=== PATIENT | female | born 1975 | race Two or more races ===

== ENCOUNTER 2025-01-25 15:40 | Emergency (ER) | payer MEDICAID, OTHER ==
[~2025-01-25] VITALS: Ht 152.4 cm; Wt 64.7 kg
[2025-01-25 16:57] VITALS: TEMP 98.1
--- NOTE | 2025-01-25 17:14 | ED.PDOC ---
[employer] RELATIONS HPI Comments 50 y/o F, presents to the ED for CC of vaginal bleeding. Patient states, she has had abnormal/prolonged menstrual bleeding x3.5weeks. Patient relays, that bleeding quality has now worsened with "golf ball" sized clots. Patient further relays, that menstrual periods have always been heavy and come along with associated headaches and ocular hemorrhages; right ocular hemorrhage is noted to the right eye. Patient denies fatigue, weakness, faintness, or dizziness. No other symptoms or modifying factors are present at this time. Chief Complaint: Vaginal Bleed Time Seen by MD: 17:00 Reviewed Notes: Nurses Notes, Medications, Allergies Home Meds Active Scripts Tranexamic Acid (TRANEXAMIC ACID) 650 Mg Tab, 650 MG OR TID for 5 Days, #15 TAB Prov:ERLIN SALCEDO MD 01/25/25 Information Source: Patient Mode of Arrival: Ambulatory Timing: Weeks Prehospital treatment: None Severity: Moderate Vaginal Discharge: None Bleeding Quality: Bright Red, Clotted Onset Of Mass/Bleeding: Menstrual Last Consensual Mcnair: Unknown Blood Type: Unknown Associated Signs and Symptoms: Vaginal Bleeding Past Medical History PAST MEDICAL HISTORY: Denies Surgical History: Denies all surgeries Family History Family History: Unknown Social History Smoker: Non-Smoker Alcohol: Denies ETOH Use Drugs: Denies Drug Use Lives In: Home Constitutional: denies: chills, diaphoresis, fatigue, fever, malaise, sweats, weakness, others EENTM: denies: blurred vision, double vision, ear bleeding, ear discharge, ear drainage, ear pain, ear ringing, eye pain, eye redness, hearing loss, mouth pain, mouth swelling, nasal discharge, nose bleeding, nose congestion, nose pain, photophobia, tearing, throat pain, throat swelling, voice changes, others Respiratory: denies: cough, hemoptysis, orthopnea, SOB at rest, shortness of breath, SOB with excertion, stridor, wheezing, others Cardiovascular: denies: chest pain, dizzy spells, diaphoresis, Dyspnea on exertion, edema, irregular heart beat, left arm pain, lightheadedness, palpitations, PND, syncope, others Gastrointestinal: denies: abdomen distended, abdominal pain, blood streaked bowels, constipated, diarrhea, dysphagia, difficulty swallowing, hematemesis, melena, nausea, poor appetite, poor fluid intake, rectal bleeding, rectal pain, vomiting, others Neurological: denies: dizziness, fainting, headache, left sided numbness, left sided weakness, numbness, paresthesia, pre-existing deficit, right sided numbness, right sided weakness, seizure, speech problems, tingling, tremors, weakness, others Musculoskeletal: denies: back pain, gout, joint pain, joint swelling, muscle pain, muscle stiffness, neck pain, others Integumetry: denies: bruises, change in color, change in hair/nails, dryness, laceration, lesions, lumps, rash, wounds, others Allergic/Immunocompromised: denies: Difficulty Healing, Frequent Infections, Hives, Itching, others Hematologic/Lymphatic: denies: anemia, blood clots, easy bleeding, easy bruising, swollen glands, others Endocrine: denies: excessive hunger, excessive sweating, excessive thirst, excessive urination, flushing, intolerance to cold, intolerance to heat, unexplained weight gain, unexplained weight loss, others Psychiatric: denies: anxiety, bipolar disorder, depression, hopeless, panic disorder, schizophrenia, sleepless, suicidal, others All Other Systems: Reviewed and Negative Physical Exam General Appearance: No Apparent Distress HEENT: Normal ENT Inspection, Pharynx Normal, TMs Normal Neck: Full Range of Motion, Non-Tender, Normal, Normal Inspection Respiratory: Chest Non-Tender, Lungs Clear, No Accessory Muscle Use, No Respiratory Distress, Normal Breath Sounds Cardiovascular: No Edema, No JVD, No Murmur, No Gallop, Normal Peripheral Pulses, Regular Rate/Rhythm Breast Exam: Deferred Gastrointestinal: No Organomegaly, Non Tender, No Pulsatile Mass, Normal Bowel Sounds, Soft Genitalia: Deferred Pelvic: Deferred Rectal: Deferred Extremities: No calf tenderness, Normal capillary refill, Normal inspection, Normal range of motion, Non-tender, No pedal edema Musculoskeletal : Apperance: Normal Neurologic: Alert, musical instruments assembler II-XII nml as Tested, No Motor Deficits, Normal Affect, Normal Mood, No Sensory Deficits Cerebellar Function: Normal Reflexes: Normal Skin: Dry, Normal Color, Warm Lymphatic: No Adenopathy Was a procedure done? Was a procedure done?: No Differential Diagnosis (INSPECTOR PRECISION) Vaginal Bleeding: Hormonal, Menorrhagia, Menometrorrhagia, Menstrual Bleeding X-Ray, Labs, Meds, VS Vital Signs Date Time Temp Pulse Resp B/P (MAP) Pulse Ox O2 Delivery O2 Flow Rate FiO2 01/25/25 16:57 98.1 72 17 120/91 (101) 97 98.1 01/25/25 15:43 97.9 88 18 140/86 98 97.9 Lab Test 01/25/25 17:06 Range/Units White Blood Count 4.7 4.4-10.8 10^3/uL Red Blood Count 4.28 4.0-5.20 10^6/uL Hemoglobin 10.5 L 12.2-16.2 g/dL Hematocrit 33.2 L 36.0-46.0 % Mean Corpuscular Volume 77.6 L 80.0-100.0 fL Mean Corpuscular Hemoglobin 24.7 L 28.0-32.0 pg Mean Corpuscular Hemoglobin Concent 31.8 L 32.0-36.0 g/dL Red Cell Distribution Width 16.8 H 11.8-14.3 % Platelet Count 273 140-450 10^3/uL Mean Platelet Volume 8.5 6.9-10.8 fL Neutrophils (%) (Auto) 56.7 37.0-80.0 % Lymphocytes (%) (Auto) 34.7 10.0-50.0 % Monocytes (%) (Auto) 6.5 0.0-12.0 % Eosinophils (%) (Auto) 1.3 0.0-7.0 % Basophils (%) (Auto) 0.8 0.0-2.0 % Neutrophils # (Auto) 2.7 1.6-8.6 10 ^3/uL Lymphocytes # (Auto) 1.6 0.4-5.4 10 ^3/uL Monocytes # (Auto) 0.3 0-1.3 10 ^3/uL Eosinophils # (Auto) 0.1 0-0.8 10 ^3/uL Basophils # (Auto) 0 0-0.2 10 ^3/uL Nucleated Red Blood Cells 0.1 % Sodium Level 142 136-145 mmol/L Potassium Level 3.8 3.5-5.1 mmol/L Chloride Level 105 98-107 mmol/L Carbon Dioxide Level 27 20-31 mmol/L Anion Gap 10 5-15 Blood Urea Nitrogen 9 9-23 mg/dL Creatinine 0.86 0.550-1.02 mg/dL Glomerular Filtration Rate Calc 82 >90 mL/min BUN/Creatinine Ratio 10.5 10.0-20.0 Serum Glucose 162 H 74-106 mg/dL Calcium Level 9.2 8.7-10.4 mg/dL The pelvic ultrasound shows: IMPRESSION: 1. Grossly unremarkable pelvic ultrasound. 2. Intramural fibroid measuring 2.9 x 3.1 x 3.5 cm The patient's CBC shows anemia with a hemoglobin of 10.5 and hematocrit of 33.2 The patient's chemistry panel is within normal limits. We did speak with the OBGYN and at this time the patient will be discharged on TXA. The patient understands and agrees with the management. The patient is to follow up with the OBGYN Images Reviewed?: Images reviewed and evaluated by me Time of 1ST Reevaluation: 17:30 Reevaluation 1ST: Unchanged Patient Education/Counseling: Diagnosis, Treatment, Prognosis, Need For Follow Up Family Education/Counseling: Diagnosis, Treatment, Prognosis, Need For Follow Up Departure 1 Departure Time of Disposition: 18:22 Impression: Primary Impression: Fibroid tumor Additional Impressions: Abnormal vaginal bleeding Anemia Qualified Codes: D64.9 - Anemia, unspecified Disposition: 01 HOME / SELF CARE / HOMELESS Condition: Fair e-Prescriptions Tranexamic Acid (TRANEXAMIC ACID) 650 Mg Tab 650 MG OR TID for 5 Days, #15 TAB Prov: ERLIN SALCEDO MD 01/25/25 Discharged With: Self Critical Care Note Critical Care Time?: No Stability Stability form required: No Heart Score Heart Score: Heart Score Response (Comments) Value History N/A 0 EKG N/A 0 Age N/A 0 Risk Factors N/A 0 Troponin N/A 0 Total 0 I personally scribed for ERLIN SALCEDO MD ([email or web address]) on 01/25/25 at 17:14. Electronically submitted by Afsaneh Mcneill ([email or web address]). ERLIN SALCEDO MD Jan 25, 2025 17:14
[2025-01-25 17:29] LABS: Hemoglobin 10.5 g/dL (12.2-16.2); Mean Corpuscular Volume 77.6 fL (80.0-100.0); Nucleated Red Blood Cells % 0.1 %
[2025-01-25 17:31] LABS: Chloride 105 mmol/L (98-107); Hematocrit 33.2 % (36.0-46.0); Mean Corpuscular Hemoglobin 24.7 pg (28.0-32.0); Potassium 3.8 mmol/L (3.5-5.1); Sodium 142 mmol/L (136-145)
[2025-01-25 17:32] LABS: Anion Gap 10 (5-15); Calcium 9.2 mg/dL (8.7-10.4); Carbon Dioxide 27 mmol/L (20-31)
[2025-01-25 17:37] LABS: BUN/Creatinine Ratio 10.5 (10.0-20.0)
[2025-01-25 17:39] LABS: Blood Urea Nitrogen 9 mg/dL (9-23); Glucose 162 mg/dL (74-106)
--- NOTE | 2025-01-25 18:01 | DVH ---
INDICATION: pain TECHNIQUE: Multiple real-time grayscale transabdominal sonographic images along with color and duplex Doppler of the uterus and ovaries were obtained. COMPARISON: None FINDINGS: The uterus measures 9 x 4.5 by 5.9 cm. The endometrial stripe measures 3 mm. There appears to be a intramural fibroid in the uterus measuring 2.9 x 3.1 x 3.5 cm The right ovary measures 2.3 x 1.18 x 1.4 cm. Right ovarian volume is 1.97 ML The left ovary measures 2.82 x 1.95 x 2.51 cm. Left ovarian volume is 7.21 mL Subsequent color and duplex Doppler interrogation of the ovaries demonstrated symmetric vascular flow to both ovaries, though this does not exclude the possibility of torsion due to the dual blood suppl y. IMPRESSION: 1. Grossly unremarkable pelvic ultrasound. 2. Intramural fibroid measuring 2.9 x 3.1 x 3.5 cm
[2025-01-25] MEDS ORDERED: TRAN650T5 OR (18:18)
[2025-01-25 18:36] VITALS: BP 116/86; PULSE 72; RESP 18; O2SAT 98
== END 2025-01-25 18:43 | disposition home or self-care (01) ==
LOC: EDSEX 15:40 → ER 15:40
DX: N93.9 Abnormal uterine and vaginal bleeding, unspecified (principal); D64.9 Anemia, unspecified; D25.1 Intramural leiomyoma of uterus
CPT/HCPCS: 36415; 76856; 80048; 85025; 86850; 86900; 86901